=== PATIENT | male | born 1985 | race Caucasian/White ===

== ENCOUNTER 2016-08-01 18:33 | Emergency (ER) | payer OTHER ==
[2016-08-01] MEDS ORDERED: HYDROcod/ACET 5/325 Prepack 6 PO STA (20:40)
[2016-08-01] MEDS ORDERED: HYDROcod/ACET 5/325 Prepack 6 PO ONE (20:46)
== END 2016-08-01 21:46 | disposition home or self-care (01) ==
DX: S92.424A Nondisplaced fracture of distal phalanx of right great toe, initial encounter for closed fracture (principal); W21.09XA Struck by other hit or thrown ball, initial encounter; Y93.54 Activity, bowling; Y92.39 Other specified sports and athletic area as the place of occurrence of the external cause; Y99.8 Other external cause status